=== PATIENT | male | born 1940 | race Caucasian/White ===

== ENCOUNTER → 2017-02-19 | Outpatient (CLI) | payer OTHER, BC ==
--- NOTE | 2017-02-19 12:46 | DIAGNOSTIC IMAGING REPORT ---
SINUS CT CT DOSE: 269.19 mGycm HISTORY: SINUSITIS TECHNIQUE: Multiaxial CT images of the paranasal sinuses were performed and reformatted in the coronal plane without the use of contrast. COMPARISON: None. FINDINGS: Minimal mucosal thickening within the maxillary sinuses and right sphenoid sinus anteriorly. The frontal sinuses, ethmoid air cells, and left mastoid air cells are clear. There are few fluid-filled right inferior mastoid air cells. No fluid levels within the paranasal sinuses. The bilateral ostiomeatal units are patent. Left nasal septal deviation with a small left-sided nasal spur. The orbital floors and lamina papyracea are intact. The visualized brain parenchyma is unremarkable for age. The orbits are unremarkable. IMPRESSION: 1. Minimal mucosal thickening within the maxillary sinuses and right sphenoid sinus. No fluid levels within the paranasal sinuses. 2. Left nasal septal deviation with a small left-sided nasal spur. 3. Small right mastoid effusion. Electronically signed by: Deandre Vanessa M.D. 02/19/2017 12:45 PM Dictated Date/Time: 02/19/2017 12:36 PM
== END | disposition home or self-care (01) ==
LOC: C.CTS 12:04
PROVIDERS: ATTEND Otolaryngology
DX: J32.9 Chronic sinusitis, unspecified (principal)